=== PATIENT | male | born 1995 | race Caucasian/White ===

== ENCOUNTER 2022-03-29 16:57 | Emergency (ER) | payer SELFPAY ==
[2022-03-29 17:20] VITALS: BP 133/82; PULSE 66; RESP 20; TEMP 98.5; BMI 23.7
[2022-03-29] MEDS ORDERED: ACETAMINOPHEN 500 MG TABLET (FP) PO ONE (17:24)
[2022-03-29] MEDS ORDERED: ACETAMINOPHEN 500 MG TABLET (FP) ONE (17:25)
[2022-03-29] MEDS ORDERED: oxyCODONE HCL 5 MG TABLET PO ONE (18:52)
[2022-03-29] MEDS ORDERED: oxyCODONE HCL 5 MG TABLET ONE (19:20)
== END 2022-03-29 19:52 | disposition home or self-care (01) ==
LOC: FER 16:57
DX: S52.501A Unspecified fracture of the lower end of right radius, initial encounter for closed fracture (principal); Y04.8XXA Assault by other bodily force, initial encounter
CPT/HCPCS: 70450-TC; 70486-TC; 71045-TC-FY; 71111-TC-FY; 73090-TC-RT-FY; 73110-TC-RT-FY; 73130-TC-RT-FY; 99285-25